=== PATIENT | female | born 1990 | race Caucasian/White ===

== ENCOUNTER 2017-10-14 15:45 | Emergency (ER) | payer SELFPAY ==
[2017-06-19 13:10] VITALS: Ht 167.6 cm; Wt 95.3 kg
[~2017-10-14] VITALS: Ht 167.6 cm; Wt 95.3 kg
[~2017-10-14 15:45] MED LIST: AA/A14DR7 *; AA/A14DR7 RIGHT EAR; ACE3 PO; ACET-1718 PO; ACET-1935 PO; ACET-3143 FT; ACET500T68 PO; AMO500 PO; AMOX-362 PO; AMOX-559 PO; ANTIBIOTIC; ANU28T PR; AUG500 PO; AUG875 PO; AZIT1PAC21 PO; BIRTH CONTROL; BUS5 PO; BUTA1CAP51 PO; BUTA1TAB14 PO; CEP500 PO; CEPH250C37 PO; CIP500 PO; CITA-128 PO; DOXY-179 PO; ESC10 FT; ESCI20TA38 PO; FERR-41 PO; FOLIC ACID; HYDR2TAB4 PO; IBU600 PO; IBU800 PO; IBUP600T22 PO; IBUP800T37 PO; IRON18TA2 PO; KET10 PO; LOM PO; LOR5 PO; LOR5/325 PO; LURA20TA PO; MET2 PO; METR-1 PO; METR-119 PO; MID PO; NIFE20CA8 PO; NO RTN MEDS; NORG1TAB74 PO; OND4 PO; ONDA4TAB PO; OXYC-373 PO; PER PO; PHEN200T32 PO; PHENA200 PO; PNV1TABL92 PO; PRE20 PO; PRED-314 PO; PREN-148 PO; PREN-67 PO; PREN-85 PO; PRO25 IV; SER50 PO; SERT25TA87 PO; TOBOD OU; TOPI25TA PO; TOPI50TA99 PO; [UNRECOGNIZED DRUG - REMARK]
--- NOTE | 2017-10-14 15:51 | ER Report ---
History and Physical Time Seen By MD: 15:50 HPI/ROS CHIEF COMPLAINT: flu like symptoms HISTORY OF PRESENT ILLNESS: Pt states "everyone in my family has been sick this week" Pts son recently dx with influenza B. PT stasrted to feel sick on Friday. Friday started with runny nose, sneezing, headaches, coughing. No also feeling more sob. Decreased appetite. + nausea. no vomiting no diarrhea. PT feels like she has been "hit by a truck" "i am achy and sore and i cant be sick i have young kids". Pt currently feeling light headed. REVIEW OF SYSTEMS: Constitutional: No fever, + chills. Eyes: No discharge. ENT: + sore throat, + nasal discharge Cardiovascular: No chest pain, no palpitations. Respiratory: + cough, + shortness of breath. Gastrointestinal: No abdominal pain, no vomiting, + nausea Genitourinary: No hematuria. Musculoskeletal: No back pain. Skin: No rashes. Neurological: + headache. Allergies: Coded Allergies: Iodinated Contrast- Oral and IV Dye (Verified Allergy, Severe, SWELLING, SNEEZING, THROAT CLOSURE, 10/14/17) iodine (Verified Allergy, Intermediate, PUFFS UP/SNEEZES W/ TOPICAL/ INTERNAL IODINE, 10/14/17) metoclopramide (Verified Allergy, Intermediate, MENTAL STATUS CHANGES, ) latex (Verified Allergy, Mild, RASH, 10/14/17) promethazine HCl (Verified Allergy, Mild, MOOD SWINGS AND RASH, 10/14/17) Home Meds Active Scripts Codeine Phosphate/Guaifenesin (Guaifenesin-Codeine Syrup) 10 Mg-100 Mg/5 Ml Liquid, 5 ML PO Q4-6H Y for COUGH, #120 ML Prov:LAURORA,JOSE G V DO 10/14/17 Albuterol Sulfate (VENTOLIN HFA) 18 Gm Inh, 2 PUFF INH Q4-6H Y for WHEEZING, #1 INH Prov:LAURORA,JOSE G V DO 10/14/17 Oseltamivir Phosphate (TAMIFLU) 75 Mg Cap, 75 MG FT BID, #10 CAP Prov:LAURORA,JOSE G V DO 10/14/17 Hydromorphone Hcl (HYDROMORPHONE HCL) 2 Mg Tablet, 2-4 MG PO Q4H for PAIN, #20 TAB 0 Refills Prov:SELENA BAUTISTA MD 06/19/17 Ibuprofen (IBUPROFEN) 800 Mg Tablet, 1 TAB PO Q8H, #30 TAB 0 Refills Take with food every 8 hours. Prov:SELENA BAUTISTA MD 06/18/17 Reported Medications [vit c] No Conflict Check, 1000 QDAY 10/14/17 Dextromethorphan Hb/Doxylamine (Robitussin Nighttime Cough Dm) 30 Mg-12.5 Mg/10 Ml Liquid 10/14/17 Butalbital/Aspirin/Caffeine (FIORINAL 50-325-40 MG CAPSULE) 1 Each Capsule, 1-2 EACH PO PRN, CAPSULE 06/10/17 Lurasidone Hcl (LATUDA) 20 Mg Tablet, 20 MG PO DAILY 01/17/17 Escitalopram Oxalate (LEXAPRO) 20 Mg Tablet, 20 MG PO QDAY, TAB 09/08/16 Past Medical/Surgical History pmhx: migraines Pshx: neg Hx Smoking: Yes (1 PPD X15 YEARS) Smoking Status: Current: Every Day Smoker Exposure to Second Hand Smoke?: Yes Hx Substance Use Disorder: No Hx Alcohol Use: No Constitutional Vital Sign - Last 24 Hours 10/14/17 10/14/17 10/14/17 10/14/17 15:50 16:15 16:15 16:19 Temp 97.6 Pulse 91 63 Resp 20 14 B/P (MAP) 118/77 139/89 (106) Pulse Ox 95 95 O2 Delivery Room Air Room Air 10/14/17 10/14/17 10/14/17 16:24 16:30 16:45 Pulse 69 75 Resp 14 B/P (MAP) 130/87 (101) Physical Exam General Appearance: The patient is alert, has no immediate need for airway protection and no signs of toxicity. Eyes: Pupils equal and round no pallor or injection, EOMI ENT: no pharyngeal erythema or exudates, Mucous membranes are moist, TM are nl b/l Respiratory: There are no retractions, lungs decreased but no wheezing Cardiovascular: Regular rate and rhythm. pulses are equal and symmetrical Gastrointestinal: Abdomen is soft and non tender, no masses, bowel sounds normal, no guarding, no rigidity or rebound Neurological: Cranial nerves II-XII grossly intact, no sensory or motor loss Skin: Warm and dry, no rashes. Musculoskeletal: Neck is supple non tender, no vertebral tenderness Extremities are nontender, non swollen and have full range of motion. DIFFERENTIAL DIAGNOSIS: After history and physical exam differential diagnosis was considered for influenza, viral syndrome, pneumonia, bronchitis Medical Decision Making Data Points Laboratory Hematology Test 10/14/17 16:04 Influenza Virus Type A (PCR) Positive (NEGATIVE) Influenza Virus Type B (PCR) Negative (NEGATIVE) Chemistry Test 10/14/17 16:04 Influenza Virus Type A (PCR) Positive (NEGATIVE) Influenza Virus Type B (PCR) Negative (NEGATIVE) EKG/Imaging Imaging FACILITY: [facility] [place] PATIENT NAME: Bisi Thompson : 1990 MR: [id number] V: [id number] EXAM DATE: ORDERING PHYSICIAN: JOSE G ALVES TECHNOLOGIST: [place] [facility] [place] Bisi Thompson : 1990 Visit/Account:[id number] Date of Sevice: 10/14/2017 2 VIEWS CHEST INDICATION: Cough. COMPARISON: 10/15/2011. FINDINGS: Cardiomediastinal silhouette and pulmonary vessels within normal limits. There is no focal infiltrate or lobar consolidation. There is no pneumothorax or pleural effusion. No nodule. Upper abdomen is unremarkable. No acute bony abnormality. IMPRESSION: 1. No acute cardiopulmonary process. Report Dictated By: Norm Sanchez at 10/14/2017 4:56 PM Report E-Signed By: Norm Sanchez at 10/14/2017 4:58 PM WSN:[id number] ED Course/Re-evaluation Clinical Indication for ER IV: Hydration, IV Access ED Course 10/14/2017 4:44:02 pm Pts breathing treatment is completed. Lungs are louder and clear. Pt feels some breathing improvement with treatment but states it still hurts to cough. Pt is going to xray next. Decision to Disposition Date: Oct 14, 2017 Decision to Disposition Time: 16:52 Depart Departure Latest Vital Signs Vital Signs Date Time Temp Pulse Resp B/P (MAP) Pulse Ox O2 Delivery O2 Flow Rate FiO2 10/14/17 16:45 75 10/14/17 16:30 130/87 (101) 10/14/17 16:24 14 10/14/17 16:15 95 Room Air 10/14/17 15:50 97.6 Impression: Primary Impression: Influenza A Additional Impression: Cough due to bronchospasm Condition: Improved Disposition: HOME OR SELF-CARE Referrals: SELENA BAUTISTA MD (PCP) New Scripts Codeine Phosphate/Guaifenesin (Guaifenesin-Codeine Syrup) 10 Mg-100 Mg/5 Ml Liquid 5 ML PO Q4-6H Y for COUGH, #120 ML Prov: JOSE G ALVES DO 10/14/17 Albuterol Sulfate (VENTOLIN HFA) 18 Gm Inh 2 PUFF INH Q4-6H Y for WHEEZING, #1 INH Prov: JOSE G ALVES V DO 10/14/17 Oseltamivir Phosphate (TAMIFLU) 75 Mg Cap 75 MG FT BID, #10 CAP Prov: JOSE G ALVES DO 10/14/17 Departure Forms: ER Transition Record, Medications Reconciliation, Patient Portal Information Patient Instructions: Influenza (GEN) Additional Instructions: You have influenza. Tamiflu twice a day. Albuterol inhaler 2 puffs every 4 hours as needed for cough and wheezing. Motrin/tylenol for bodyaches Problem Qualifiers JOSE G ALVES DO Oct 14, 2017 15:50
[2017-10-14] MEDS ORDERED: DEXT237L (16:01)
[2017-10-14] MEDS ORDERED: vit c (16:01)
[2017-10-14] MEDS ORDERED: KETOROLAC 30 MG/ML VIAL IVP ONE (16:05)
[2017-10-14] MEDS ORDERED: LR(*) 1000 ML BAG 1,000 ML IV ONE (16:05)
[2017-10-14] MEDS ORDERED: ONDANSETRON 4 MG/2 ML VIAL IVP ONE (16:05)
[2017-10-14] MEDS ORDERED: ALBUTEROL/IPRATROPIUM 3 ML NEB NEB ONE (16:10)
[2017-10-14] MEDS ORDERED: ALB18R INH (16:56)
[2017-10-14] MEDS ORDERED: OSE75 FT (16:56)
[2017-10-14] MEDS ORDERED: GUAI473L81 PO (16:56)
[2017-10-14] MEDS ORDERED: OSELTAMIVIR PHOS 75 MG CAP PO ONE (17:00)
--- NOTE | 2017-10-14 17:02 | RADIOLOGY IMAGING REPORT ---
FACILITY: [facility] - [place] PATIENT NAME: Bisi Thompson : 1990 MR: [id number] V: [id number] EXAM DATE: ORDERING PHYSICIAN: JOSE G ALVES TECHNOLOGIST: Location: [facility] Patient: Bisi Thompson : 1990 Visit/Account:[id number] Date of Sevice: 10/14/2017 2 VIEWS CHEST INDICATION: Cough. COMPARISON: 10/15/2011. FINDINGS: Cardiomediastinal silhouette and pulmonary vessels within normal limits. There is no focal infiltrate or lobar consolidation. There is no pneumothorax or pleural effusion. No nodule. Upper abdomen is unremarkable. No acute bony abnormality. IMPRESSION: 1. No acute cardiopulmonary process. Report Dictated By: Norm Sanchez at 10/14/2017 4:56 PM Report E-Signed By: Norm Sanchez at 10/14/2017 4:58 PM WSN:[id number]
[2017-10-14 17:26] VITALS: BP 136/81
[2017-10-15] MEDS ORDERED: OXYC-865 PO (22:32)
== END 2017-10-14 18:00 | disposition home or self-care (01) ==
LOC: ER 15:51
DX: J09.X2 Influenza due to identified novel influenza A virus with other respiratory manifestations (principal); J98.01 Acute bronchospasm
CPT/HCPCS: 71046; 87502; 94640; 96361; 96374; 96375; 99284; J1885; J2405; J7120; J7620

== ENCOUNTER 2017-10-15 22:10 | Emergency (ER) | payer SELFPAY ==
[2017-06-19 13:10] VITALS: Ht 167.6 cm; Wt 97.5 kg
[~2017-10-15] VITALS: Ht 167.6 cm; Wt 97.5 kg
[~2017-10-15 22:10] MED LIST changes: +ALB18R INH; +DEXT237L; +GUAI473L81 PO; +OSE75 FT; +vit c
--- NOTE | 2017-10-15 22:13 | ER Report ---
History and Physical Time Seen By : 22:12 HPI/ROS CHIEF COMPLAINT: Fatigue and shortness of breath HISTORY OF PRESENT ILLNESS: 27-year-old female presents to the ER complaining of continued fatigue and weakness. She was diagnosed with influenza A yesterday. She has 4 kids at home. She also went to work yesterday. Taking Tamiflu and Tylenol with no improvement of her symptoms. She notes diffuse bodyaches. She has a dry nonproductive cough. She's had no nausea or vomiting. He states she feels dizzy and near fainting on upon standing. REVIEW OF SYSTEMS: Respiratory: As above Cardiovascular: No chest pain, no palpitations. Gastrointestinal: No vomiting, no abdominal pain. Musculoskeletal: No back pain. Allergies: Coded Allergies: Iodinated Contrast- Oral and IV Dye (Verified Allergy, Severe, SWELLING, SNEEZING, THROAT CLOSURE, 10/14/17) iodine (Verified Allergy, Intermediate, PUFFS UP/SNEEZES W/ TOPICAL/ INTERNAL IODINE, 10/14/17) metoclopramide (Verified Allergy, Intermediate, MENTAL STATUS CHANGES, ) latex (Verified Allergy, Mild, RASH, 10/14/17) promethazine HCl (Verified Allergy, Mild, MOOD SWINGS AND RASH, 10/14/17) Home Meds Active Scripts Oxycodone Hcl/Acetaminophen (PERCOCET 5-325 MG TABLET) 1 Each Tablet, 1 EACH PO Q4-6H Y for pain or cough suppression, #12 Prov:ALBERTO RUELAS DO 10/15/17 Codeine Phosphate/Guaifenesin (Guaifenesin-Codeine Syrup) 10 Mg-100 Mg/5 Ml Liquid, 5 ML PO Q4-6H Y for COUGH, #120 ML Prov:KAIDEN ALVESSA V DO 10/14/17 Albuterol Sulfate (VENTOLIN HFA) 18 Gm Inh, 2 PUFF INH Q4-6H Y for WHEEZING, #1 INH Prov:KAIDEN ALVESSA V DO 10/14/17 Oseltamivir Phosphate (TAMIFLU) 75 Mg Cap, 75 MG FT BID, #10 CAP Prov:LAURORA,JOSE G V DO 10/14/17 Hydromorphone Hcl (HYDROMORPHONE HCL) 2 Mg Tablet, 2-4 MG PO Q4H for PAIN, #20 TAB 0 Refills Prov:SELENA BAUTISTA MD 06/19/17 Ibuprofen (IBUPROFEN) 800 Mg Tablet, 1 TAB PO Q8H, #30 TAB 0 Refills Take with food every 8 hours. Prov:SELENA BAUTISTA MD 06/18/17 Reported Medications [vit c] No Conflict Check, 1000 QDAY 10/14/17 Dextromethorphan Hb/Doxylamine (Robitussin Nighttime Cough Dm) 30 Mg-12.5 Mg/10 Ml Liquid 10/14/17 Butalbital/Aspirin/Caffeine (FIORINAL 50-325-40 MG CAPSULE) 1 Each Capsule, 1-2 EACH PO PRN, CAPSULE 06/10/17 Lurasidone Hcl (LATUDA) 20 Mg Tablet, 20 MG PO DAILY 01/17/17 Escitalopram Oxalate (LEXAPRO) 20 Mg Tablet, 20 MG PO QDAY, TAB 09/08/16 Reviewed Nurses Notes: Yes Old Medical Records Reviewed: Yes Hx Smoking: Yes (1 PPD X15 YEARS) Smoking Status: Current: Every Day Smoker Exposure to Second Hand Smoke?: Yes Hx Substance Use Disorder: No Hx Alcohol Use: No Constitutional Vital Sign - Last 24 Hours 10/15/17 10/15/17 10/15/17 22:15 22:30 22:40 Temp 97.9 Pulse 66 62 Resp 28 B/P (MAP) 128/90 127/89 (102) Pulse Ox 98 94 O2 Delivery Room Air Physical Exam Vital signs stable, afebrile, mild tachypnea, pulse ox normal General Appearance: The patient is alert, has no immediate need for airway protection and no current signs of toxicity. Mild distress HEENT: Pupils equal and round no injection. Oropharynx with mild erythema, no exudate Respiratory: Chest is non tender, lungs are clear to auscultation. No wheezing or rails Cardiac: regular rate and rhythm Gastrointestinal: Abdomen is soft and non tender, no masses, bowel sounds normal. Musculoskeletal: Neck: Neck is supple and non tender. No meningismus Extremities have full range of motion and are non tender. Skin: No rashes or lesions. DIFFERENTIAL DIAGNOSIS: After history and physical exam differential diagnosis was considered for syncope including but not limited to vasovagal syncope, arrhythmia, dehydration, and blood loss. Additionally,weakness including but not limited to infectious etiology, electrolyte abnormality, depression, anxiety , CVA, spinal cord abnormality, and infectious causes. Medical Decision Making ED Course/Re-evaluation ED Course Patient was admitted to an examination room. H&P was done. The differential diagnoses was considered. On clinical examination. Patient has stable vital signs. There are no conical findings. She does appear fatigued and tired and is appropriate with influenza. Patient tried to work today. Advised she needs to stay home and actually find someone to babysit care for her kids. Patient advised to take ibuprofen 600 mg 3 times daily. Increase her fluid intake. Patient was given prescriptions for Percocet. She is advised to take Benadryl alongside of it. Since she is allergic to Phenergan. Patient advised to follow -up with her primary care if unimproved in 3-5 days. Decision to Disposition Date: Oct 15, 2017 Decision to Disposition Time: 22:29 Depart Departure Latest Vital Signs Vital Signs Date Time Temp Pulse Resp B/P (MAP) Pulse Ox O2 Delivery O2 Flow Rate FiO2 10/15/17 22:40 62 94 10/15/17 22:30 127/89 (102) 10/15/17 22:15 97.9 28 Room Air Impression: Primary Impression: Influenza A Additional Impression: History of asthma Condition: Improved Disposition: HOME OR SELF-CARE Referrals: SELENA BAUTISTA MD (PCP) New Scripts Oxycodone Hcl/Acetaminophen (PERCOCET 5-325 MG TABLET) 1 Each Tablet 1 EACH PO Q4-6H Y for pain or cough suppression, #12 Prov: ALBERTO RUELAS DO 10/15/17 Patient Instructions: Influenza (ED) Additional Instructions: Start aggressive symptomatic treatment Take ibuprofen 200 mg 3-4 tablets 3 times a day with food Drink plenty of fluids to stay hydrated, especially popsicles to reduce the fever Take DayQuil in the morning and DayQuil in the afternoon, take NyQuil at night Do not take any extra Tylenol since these products contain Tylenol Use Benadryl 25 mg every 6 hours along with Percocet to make your aches and pains go away and help you sleep Follow-up with your primary care if unimproved in 2-3 days Problem Qualifiers ALBERTO RUELAS DO Oct 15, 2017 22:13
[2017-10-15 22:30] VITALS: BP 127/89
[2017-10-15] MEDS ORDERED: oxyCODONE/ACETAMIN 5/325MG TH 2 TAB/BOTTLE PO ONE (22:30)
[2017-10-15] MEDS ORDERED: OXYC-865 PO (22:32)
== END 2017-10-15 22:46 | disposition home or self-care (01) ==
LOC: ER 22:13
DX: J11.1 Influenza due to unidentified influenza virus with other respiratory manifestations (principal); F17.210 Nicotine dependence, cigarettes, uncomplicated
CPT/HCPCS: 99283

== ENCOUNTER 2018-01-02 18:21 | Emergency (ER) | payer BC ==
[2017-06-19 13:10] VITALS: Wt 97.5 kg
[~2018-01-02 18:21] MED LIST changes: +OXYC-865 PO
--- NOTE | 2018-01-02 18:32 | ER Report ---
History and Physical Time Seen By MD: 18:32 Hx. 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 she checked her blood pressure work states that it was 127/100 was told to come to the emergency room by her primary care provider had no other symptoms but pressure was within normal range upon arrival to ER Allergies: Coded Allergies: Iodinated Contrast- Oral and IV Dye (Verified Allergy, Severe, SWELLING, SNEEZING, THROAT CLOSURE, 10/14/17) iodine (Verified Allergy, Intermediate, PUFFS UP/SNEEZES W/ TOPICAL/ INTERNAL IODINE, 10/14/17) metoclopramide (Verified Allergy, Intermediate, MENTAL STATUS CHANGES, ) latex (Verified Allergy, Mild, RASH, 10/14/17) promethazine HCl (Verified Allergy, Mild, MOOD SWINGS AND RASH, 10/14/17) Home Meds Reported Medications Butalbital/Aspirin/Caffeine (FIORINAL 50-325-40 MG CAPSULE) 1 Each Capsule, 1-2 EACH PO PRN, CAPSULE 06/10/17 Escitalopram Oxalate (LEXAPRO) 20 Mg Tablet, 20 MG PO QDAY, TAB 09/08/16 Discontinued Reported Medications [vit c] No Conflict Check, 1000 QDAY 10/14/17 Dextromethorphan Hb/Doxylamine (Robitussin Nighttime Cough Dm) 30 Mg-12.5 Mg/10 Ml Liquid 10/14/17 Lurasidone Hcl (LATUDA) 20 Mg Tablet, 20 MG PO DAILY 01/17/17 Discontinued Scripts Oxycodone Hcl/Acetaminophen (PERCOCET 5-325 MG TABLET) 1 Each Tablet, 1 EACH PO Q4-6H Y for pain or cough suppression, #12 Prov:ALBERTO RUELAS DO 10/15/17 Codeine Phosphate/Guaifenesin (Guaifenesin-Codeine Syrup) 10 Mg-100 Mg/5 Ml Liquid, 5 ML PO Q4-6H Y for COUGH, #120 ML Prov:JOSE G ALVES V DO 10/14/17 Albuterol Sulfate (VENTOLIN HFA) 18 Gm Inh, 2 PUFF INH Q4-6H Y for WHEEZING, #1 INH Prov:JOSE G ALVES V DO 10/14/17 Oseltamivir Phosphate (TAMIFLU) 75 Mg Cap, 75 MG FT BID, #10 CAP Prov:JOSE G ALVES V DO 10/14/17 Hydromorphone Hcl (HYDROMORPHONE HCL) 2 Mg Tablet, 2-4 MG PO Q4H for PAIN, #20 TAB 0 Refills Prov:SELENA BAUTISTA MD 06/19/17 Ibuprofen (IBUPROFEN) 800 Mg Tablet, 1 TAB PO Q8H, #30 TAB 0 Refills Take with food every 8 hours. Prov:SELENA BAUTISTA MD 06/18/17 Past Medical/Surgical History Migraines, depression Hx Smoking: Yes (1 PPD X15 YEARS) Smoking Status: Current: Every Day Smoker Exposure to Second Hand Smoke?: Yes Hx Substance Use Disorder: No Hx Alcohol Use: No Family History of: HTN Constitutional Vital Sign - Last 24 Hours 01/02/18 01/02/18 01/02/18 01/02/18 18:33 18:33 18:36 18:48 Temp 97.9 Pulse 79 89 Resp 14 B/P (MAP) 127/88 127/88 (101) 119/77 (91) Pulse Ox 95 95 O2 Delivery Room Air 01/02/18 01/02/18 01/02/18 01/02/18 18:51 19:00 19:06 19:21 Pulse 82 75 66 B/P (MAP) 119/82 (94) Pulse Ox 95 95 95 01/02/18 01/02/18 19:30 19:53 Pulse 88 Resp 16 B/P (MAP) 121/86 (98) 138/88 (105) Pulse Ox 92 O2 Delivery Room Air Physical Exam General Appearance: The patient is alert, has no immediate need for airway protection and no current signs of toxicity. [ ] Eyes: Pupils equal and round no injection. Respiratory: Chest is non tender, lungs are clear to auscultation. Cardiac: regular rate and rhythm [ ] Gastrointestinal: Abdomen is soft and non tender, no masses, bowel sounds normal. Musculoskeletal: Neck: Neck is supple and non tender. Extremities have full range of motion and are non tender. Skin: No rashes or lesions. [ ] DIFFERENTIAL DIAGNOSIS: After history and physical exam differential diagnosis was considered for [will we'll check kidney function, EKG, with normal vital signs we'll send her back to primary care for further evaluation Medical Decision Making Data Points Result Diagram: 01/02/18184701/02/181847 Laboratory Hematology Test 01/02/18 18:48 01/02/18 19:30 Red Blood Count 5.02 M/uL (4.17-5.56) Mean Corpuscular Volume 88.6 fL (80.0-96.0) Mean Corpuscular Hemoglobin 31.3 pg (26.0-33.0) Mean Corpuscular Hemoglobin Concent 35.3 g/dL (32.0-36.0) Red Cell Distribution Width 13.2 % (11.5-14.5) Mean Platelet Volume 9.0 fL (7.2-11.1) Neutrophils (%) (Auto) 69.2 % (39.4-72.5) Lymphocytes (%) (Auto) 24.7 % (17.6-49.6) Monocytes (%) (Auto) 4.0 % (4.1-12.4) Eosinophils (%) (Auto) 1.3 % (0.4-6.7) Basophils (%) (Auto) 0.8 % (0.3-1.4) Nucleated RBC Relative Count (auto) 0.0 /100WBC Neutrophils # (Auto) 6.9 K/uL (2.0-7.4) Lymphocytes # (Auto) 2.5 K/uL (1.3-3.6) Monocytes # (Auto) 0.4 K/uL (0.3-1.0) Eosinophils # (Auto) 0.1 K/uL (0.0-0.5) Basophils # (Auto) 0.1 K/uL (0.0-0.1) Nucleated RBC Absolute Count (auto) 0.00 K/uL Sodium Level 139 mmol/L (137-145) Potassium Level 3.5 mmol/L (3.5-5.0) Chloride Level 103 mmol/L (98-107) Carbon Dioxide Level 23 mmol/L (22-31) Blood Urea Nitrogen 10 mg/dl (7-18) Creatinine 0.80 mg/dl (0.52-1.04) Glomerular Filtration Rate Calc > 60.0 Random Glucose 130 mg/dl (75-110) Calcium Level 8.9 mg/dl (8.4-10.2) Total Bilirubin 0.3 mg/dl (0.2-1.3) Aspartate Amino Transf (AST/SGOT) 29 U/L (0-35) Alanine Aminotransferase (ALT/SGPT) 40 U/L (0-56) Alkaline Phosphatase 123 U/L (0-126) Total Protein 7.1 gm/dl (6.3-8.2) Albumin 3.9 g/dl (3.5-5.0) Urine Color Straw Urine Clarity Clear Urine pH 6.0 pH (4.8-9.5) Urine Specific [place] 1.003 Urine Protein Negative mg/dL (NEGATIVE) Urine Glucose (UA) Negative mg/dL (NEGATIVE) Urine Ketones Negative mg/dL (NEGATIVE) Urine Blood Negative (NEGATIVE) Urine Nitrite Negative (NEGATIVE) Urine Bilirubin Negative (NEGATIVE) Urine Urobilinogen Negative mg/dL (0.2-1.9) Urine Leukocyte Esterase Negative (NEGATIVE) Urine RBC None /HPF (0-2/HPF) Urine WBC <1 /HPF (0-5/HPF) Urine Squamous Epithelial Cells Few /LPF (</=FEW) Urine Bacteria Negative /HPF (NONE-FEW) Urine Mucus None /HPF (NONE-FEW) Chemistry Test 01/02/18 18:48 01/02/18 19:30 White Blood Count 9.9 k/uL (4.5-11.0) Red Blood Count 5.02 M/uL (4.17-5.56) Hemoglobin 15.7 g/dL (12.0-16.0) Hematocrit 44.5 % (34.0-47.0) Mean Corpuscular Volume 88.6 fL (80.0-96.0) Mean Corpuscular Hemoglobin 31.3 pg (26.0-33.0) Mean Corpuscular Hemoglobin Concent 35.3 g/dL (32.0-36.0) Red Cell Distribution Width 13.2 % (11.5-14.5) Platelet Count 176 K/uL (150-450) Mean Platelet Volume 9.0 fL (7.2-11.1) Neutrophils (%) (Auto) 69.2 % (39.4-72.5) Lymphocytes (%) (Auto) 24.7 % (17.6-49.6) Monocytes (%) (Auto) 4.0 % (4.1-12.4) Eosinophils (%) (Auto) 1.3 % (0.4-6.7) Basophils (%) (Auto) 0.8 % (0.3-1.4) Nucleated RBC Relative Count (auto) 0.0 /100WBC Neutrophils # (Auto) 6.9 K/uL (2.0-7.4) Lymphocytes # (Auto) 2.5 K/uL (1.3-3.6) Monocytes # (Auto) 0.4 K/uL (0.3-1.0) Eosinophils # (Auto) 0.1 K/uL (0.0-0.5) Basophils # (Auto) 0.1 K/uL (0.0-0.1) Nucleated RBC Absolute Count (auto) 0.00 K/uL Glomerular Filtration Rate Calc > 60.0 Calcium Level 8.9 mg/dl (8.4-10.2) Total Bilirubin 0.3 mg/dl (0.2-1.3) Aspartate Amino Transf (AST/SGOT) 29 U/L (0-35) Alanine Aminotransferase (ALT/SGPT) 40 U/L (0-56) Alkaline Phosphatase 123 U/L (0-126) Total Protein 7.1 gm/dl (6.3-8.2) Albumin 3.9 g/dl (3.5-5.0) Urine Color Straw Urine Clarity Clear Urine pH 6.0 pH (4.8-9.5) Urine Specific [place] 1.003 Urine Protein Negative mg/dL (NEGATIVE) Urine Glucose (UA) Negative mg/dL (NEGATIVE) Urine Ketones Negative mg/dL (NEGATIVE) Urine Blood Negative (NEGATIVE) Urine Nitrite Negative (NEGATIVE) Urine Bilirubin Negative (NEGATIVE) Urine Urobilinogen Negative mg/dL (0.2-1.9) Urine Leukocyte Esterase Negative (NEGATIVE) Urine RBC None /HPF (0-2/HPF) Urine WBC <1 /HPF (0-5/HPF) Urine Squamous Epithelial Cells Few /LPF (</=FEW) Urine Bacteria Negative /HPF (NONE-FEW) Urine Mucus None /HPF (NONE-FEW) Urinalysis Test 01/02/18 19:30 Urine Color Straw Urine Clarity Clear Urine pH 6.0 pH (4.8-9.5) Urine Specific [place] 1.003 Urine Protein Negative mg/dL (NEGATIVE) Urine Glucose (UA) Negative mg/dL (NEGATIVE) Urine Ketones Negative mg/dL (NEGATIVE) Urine Blood Negative (NEGATIVE) Urine Nitrite Negative (NEGATIVE) Urine Bilirubin Negative (NEGATIVE) Urine Urobilinogen Negative mg/dL (0.2-1.9) Urine Leukocyte Esterase Negative (NEGATIVE) Urine RBC None /HPF (0-2/HPF) Urine WBC <1 /HPF (0-5/HPF) Urine Squamous Epithelial Cells Few /LPF (</=FEW) Urine Bacteria Negative /HPF (NONE-FEW) Urine Mucus None /HPF (NONE-FEW) ED Course/Re-evaluation ED Course EKG and all lab work were negative tonight her blood pressure was normal while in the emergency room have asked her to monitor her blood pressure every morning for a week take that to her primary care provider for further evaluation and treatment Re-evaluation No acute distress and emergency room negative workup we'll have her follow primary care Decision to Disposition Date: Jan 02, 2018 Decision to Disposition Time: 19:50 Depart Departure Latest Vital Signs Vital Signs Date Time Temp Pulse Resp B/P (MAP) Pulse Ox O2 Delivery O2 Flow Rate FiO2 01/02/18 19:53 88 16 138/88 (105) 92 Room Air 01/02/18 18:33 97.9 Impression: Primary Impression: Headache Condition: Improved Disposition: XFER TO [facility] Referrals: SELENA BAUTISTA MD (PCP) 5 Days Patient Instructions: General Headache (ED) CLAUS PERRY Jan 02, 2018 18:32
[2018-01-02 19:02] LABS: PLATELET COUNT, AUTOMATED 176 K/uL (150-450)
--- NOTE | 2018-01-02 19:17 | EKG ---
FACILITY: [facility] PATIENT NAME: EDUARDA GUTIERREZ : [id number] MR: [id number] V: [id number] EXAM DATE: ORDERING PHYSICIAN: CLAUS PERRY TECHNOLOGIST: Nicho Chen Reason : Blood Pressure : / mmHG Vent. Rate : 078 BPM Atrial Rate : 078 BPM P-R Int : 156 ms QRS Dur : 090 ms QT Int : 394 ms P-R-T Axes : 041 066 042 degrees QTc Int : 449 ms Normal sinus rhythm Normal ECG No previous ECGs available Confirmed by MILDRED SHAH ([id number]) on 01/02/2018 11:57:59 PM Referred By: Confirmed By:MILDRED SHAH
[2018-01-02 19:53] VITALS: BP 138/88
== END 2018-01-02 19:57 | disposition home or self-care (01) ==
LOC: ER 18:38
DX: R51 Headache (principal); F32.9 Major depressive disorder, single episode, unspecified; F17.200 Nicotine dependence, unspecified, uncomplicated
CPT/HCPCS: 81001; 82040; 82247; 82310; 82374; 82435; 82565; 82947; 84075; 84132; 84155; 84295; 84450; 84460; 84520; 85025; 93005; 99284

== ENCOUNTER 2018-08-31 20:46 | Emergency (ER) | payer BC ==
[2017-06-19 13:10] VITALS: BMI 31.9
[2018-08-31 20:49] VITALS: BP 130/84
[2018-08-31] MEDS ORDERED: CEPH500C24 PO (20:59)
--- NOTE | 2018-08-31 20:59 | ER Report ---
History and Physical Time Seen By MD: 20:48 HPI/ROS CHIEF COMPLAINT: Ear swelling and redness HISTORY OF PRESENT ILLNESS: 28-year-old female presents ambulatory to the ER complaining of right ear swelling and redness for 2 days. She has a sore on the inside rim of her auricle. Patient's ears swell up and red. She's had no URI rhinitis, sore throat or cough. She's had no fever or chills. REVIEW OF SYSTEMS: Respiratory: No cough, no dyspnea. Cardiovascular: No chest pain, no palpitations. Gastrointestinal: No vomiting, no abdominal pain. Musculoskeletal: No back pain. Allergies: Coded Allergies: Iodinated Contrast- Oral and IV Dye (Verified Allergy, Severe, SWELLING, SNEEZING, THROAT CLOSURE, 08/31/18) iodine (Verified Allergy, Intermediate, PUFFS UP/SNEEZES W/ TOPICAL/INTERNAL IODINE, 08/31/18) metoclopramide (Verified Allergy, Intermediate, MENTAL STATUS CHANGES, 08/31/18) latex (Verified Allergy, Mild, RASH, 08/31/18) promethazine HCl (Verified Allergy, Mild, MOOD SWINGS AND RASH, 08/31/18) Home Meds Active Scripts Cephalexin Monohydrate (CEPHALEXIN) 500 Mg Cap, 500 MG PO TID for infection, #20 CAP TAKE 1 CAPSULE BY MOUTH EVERY SIX HOURS Prov:ALBERTO RUELAS DO 08/31/18 Reported Medications Butalbital/Aspirin/Caffeine (FIORINAL 50-325-40 MG CAPSULE) 1 Each Capsule, 1-2 EACH PO PRN, CAPSULE 06/10/17 Escitalopram Oxalate (LEXAPRO) 20 Mg Tablet, 20 MG PO QDAY, TAB 09/08/16 Reviewed Nurses Notes: Yes Old Medical Records Reviewed: Yes Hx Smoking: Yes (1 PPD X15 YEARS) Smoking Status: Current: Every Day Smoker Exposure to Second Hand Smoke?: Yes Hx Substance Use Disorder: No Hx Alcohol Use: No Constitutional Vital Sign - Last 24 Hours 08/31/18 20:49 Temp 97.4 Pulse 79 Resp 16 B/P (MAP) 130/84 Pulse Ox 95 O2 Delivery Room Air Physical Exam General Appearance: The patient is alert, has no immediate need for airway protection and no current signs of toxicity. Vital signs stable, afebrile, pulse ox normal HEENT: Pupils equal and round no injection. TMs normal, the right auricle is g rossly erythematous and swollen. There is a break in the skin on the inside of the or cold the superior rim. Respiratory: Chest is non tender, lungs are clear to auscultation. Cardiac: regular rate and rhythm Gastrointestinal: Abdomen is soft and non tender, no masses, bowel sounds normal. Musculoskeletal: Neck: Neck is supple and non tender. No lymphadenopathy Extremities have full range of motion and are non tender. Skin: No rashes or lesions. DIFFERENTIAL DIAGNOSIS: After history and physical exam differential diagnosis was considered for cellulitis, chondritis Medical Decision Making ED Course/Re-evaluation ED Course Patient was admitted to an examination room. H&P was done. The differential diagnoses was considered. On clinical examination. Patient has what appears to be acute cellulitis of the right upper auricle. Patient be covered with Keflex 500 mg 3 times daily. She is advised to apply warm compresses to the affected area. Follow-up with primary care if unimproved in 3-5 days. Decision to Disposition Date: Aug 31, 2018 Decision to Disposition Time: 20:58 Depart Departure Latest Vital Signs Vital Signs Date Time Temp Pulse Resp B/P (MAP) Pulse Ox O2 Delivery O2 Flow Rate FiO2 08/31/18 20:49 97.4 79 16 130/84 95 Room Air Impression: Primary Impression: Cellulitis of right external ear Condition: Improved Disposition: HOME OR SELF-CARE Referrals: SELENA BAUTISTA MD (PCP) New Scripts Cephalexin Monohydrate (CEPHALEXIN) 500 Mg Cap 500 MG PO TID for infection, #20 CAP TAKE 1 CAPSULE BY MOUTH EVERY SIX HOURS Prov: ALBERTO RUELAS DO 08/31/18 Patient Instructions: Cellulitis (ED) Additional Instructions: Follow-up with primary care if unimproved in 3-5 days. ALBERTO RUELAS DO Aug 31, 2018 20:59
[2018-08-31] MEDS ORDERED: CEPHALEXIN MONO 500 MG CAP PO ONE (21:00)
== END 2018-08-31 21:07 | disposition home or self-care (01) ==
LOC: ER 21:07
DX: H60.11 Cellulitis of right external ear (principal)
CPT/HCPCS: 99283